=== PATIENT | female | born 2000 | race African-American/Black ===

== ENCOUNTER 2025-03-13 11:28 | Observation (INO) | payer MEDICAID, SELFPAY ==
[2025-03-13] VITALS (115 sets, daily range): BP systolic 81–118; BP diastolic 34–81; PULSE 91–136; RESP 18–24; TEMP 36.4–37.4; O2SAT 96–100; BMI 25.2
--- NOTE | ~2025-03-13 | US_ITS ---
EXAM EXAMINATION: US OB follow up DATE: 03/13/2025 13:27 CDT INDICATION: Absence of care. COMPARISON: None TECHNIQUE: Real-time transabdominal obstetric ultrasound. FINDINGS: 5 para 2 There is a single intrauterine gestation in vertex presentation. The placenta is anterior The cervix measures 4.00 cm in length on the submitted images. cardiac activity and movement is noted with a heart rate of 147 beats per minute. Amniotic fluid index measures 20.7 cm. The following biometric data were obtained: Biparietal diameter (BPD): 7.7 cm; head circumference (HC): 28.7 cm; abdominal circumference (AC): 26.6 cm; femur length (FL): 5.9 cm. These measurements are concordant. Estimated weight is 1640 g +/- 246 g, without correlation in size percentile provided. As single measurements, these parameters are each equal to the following estimated gestational ages: BPD: 30 weeks 5 days. HC: 31 weeks 3 days. AC: 30 weeks 5 days. FL: 30 weeks 6 days. estimated gestational age based solely on measurements from this exam is 31 weeks 0 days +/- 2 weeks 1 day. IMPRESSION: Single intrauterine gestation in vertex presentation with cardiac activity identified. Approximate gestational age is 31 weeks and 0 days with the estimated date of delivery 05/15/2025. Cervical length measures 4 cm. The placenta is anterior without placenta previa. Amniotic fluid index is within normal limits, as detailed above. Reviewed, dictated and finalized at location A. IMPRESSION: Single intrauterine gestation in vertex presentation with cardiac activit y identified. Approximate gestational age is 31 weeks and 0 days with the estimated date of d elivery 05/15/2025. Cervical length measures 4 cm. The placenta is anterior without placenta previa. Amniotic fluid index is within normal limits, as detailed above.
--- NOTE | 2025-03-13 12:00 | PC.NURSE ---
This patient, Idalmis Pierre, admitted to the OB room 116 for observation for contractions. Patient/family oriented to hospital policies and general routines including ID bracelet, bed and alarms, visiting hours, pain management, procedures, bathroom and other care routines, personal items, smoking policy, room service/diet, and visiting hours. Patient/Family are encouraged to report perceived risks to care and to ask questions if they do not understand what they are told or what they should do.
--- OUTSIDE RECORDS SUMMARY | 2025-03-13 12:02 | XMS_ITS | Referral Summary ---
Author Organization [facility] Address [facility] [place] [address] Care Team Providers Care Customer Service Dispatcher Name Role Phone No, Physician Primary Care Provider Allergies Active Allergy Reactions Criticality Noted Date Comments Latex Rash Medium 03/28/2024 Medications vit 64-[id number]-[id number]-d shirley 27mg iron- 800 mcg-250 mg capsule Take 1 tablet by mouth daily 30 capsule 4 Active promethazine (PHENERGAN) 25 mg tablet Take 1 tablet (25 mg total) by mouth every 6 (six) hours as needed for nausea 20 tablet 4 Active HYDROcodone-ismael taminophen (NORCO) 5-325 mg per tabletIndicatio ns:Pain Take 1 tablet by mouth every 6 (six) hours as needed for pain 6 tablet 4 Active metoclopramide (REGLAN) 10 mg tablet Take 1 tablet (10 mg total) by mouth every 8 (eight) hours as needed (nausea and vomiting) 12 tablet 4 Active acetaminophen (TYLENOL) 325 mg tablet Take 2 tablets (650 mg total) by mouth every 6 (six) hours as needed for pain, headaches or fever 30 tablet 4 Active Active Problems Problem Noted Date Diagnosed Date Second trimester 07/03/2022 Volume depletion 07/03/2022 Vaginal discharge 07/03/2022 Social History Tobacco Use Types Packs/Day Years Used Date Smoking Tobacco: Never Smokeless Tobacco: Never Alcohol Use Standard Drinks/Week Comments No 0 (1 standard drink = 0.6 oz pur e alcohol) Personal Safety Answer Date Recorded Have you ever been in or are you currently in a harmful physical or emotional relationship or is someone making you feel afraid or unsafe? Denies 10/15/2024 Comments Unknown Sex and Gender Information Value Date Recorded Sex Assigned at Not on file Legal Sex Female 10:40 PM LICENSED PRACTICAL NURSE Gender Identity Not on file Sexual Orientation Not on file Last Filed Vital Signs Vital Sign Reading Time Taken Comments Blood Pressure 144/78 10/16/2024 12:15 AM LICENSED PRACTICAL NURSE Pulse 97 10/16/2024 2:15 AM LICENSED PRACTICAL NURSE Temperature 36.9 C (98.4 F) 10/16/2024 2:19 AM LICENSED PRACTICAL NURSE Respiratory Rate 16 10/15/2024 10:01 PM LICENSED PRACTICAL NURSE Oxygen Saturation 100% 10/16/2024 2:15 AM LICENSED PRACTICAL NURSE Inhaled Oxygen Concentration - - Weight 65.8 kg (145 lb) 10/15/2024 10:01 PM LICENSED PRACTICAL NURSE Height 165.1 cm (5' 5) 10/15/2024 10:01 PM LICENSED PRACTICAL NURSE Body Mass Index 24.13 10/15/2024 10:01 PM LICENSED PRACTICAL NURSE Plan of Treatment Not on file Insurance [facility] Care Teams Customer Service Dispatcher Relationship Specialty Start Date End Date No, Physician PCP - General 07/03/22
--- OUTSIDE RECORDS SUMMARY | 2025-03-13 12:02 | XMS_ITS | Clinical Summary ---
Author Organization [facility] Address [facility] [place] [address] Care Team Providers Care Freight Sales Broker Name Role Phone No, Physician Primary Care Provider [phone] Allergies Active Allergy Reactions Criticality Noted Date Comments Latex Rash Medium 03/28/2024 Medications vit 86-gszm-[id number]-d shirley 27mg iron- 800 mcg-250 mg capsule [...] 07/03/2022 Volume depletion 07/03/2022 Vaginal discharge 07/03/2022 Medical History Medical History Date Comments Asthma Family History Medical History Relation Name Comments Breast cancer Maternal Grandmother Relation Name Status Comments Maternal Grandmother Social History Tobacco Use Types Packs/Day Years [...] on file Legal Sex Female 10:40 PM PROTOHISTORIAN Gender Identity Not on file Sexual Orientation Not on file Obstetrics History Para Term AB IAB SAB Ectopic Multiple Livin g Live Births 4 2 2 Date Outcome GA Total Labor Labor/2nd/3rd Weight Sex Type Anes PTL Vicki A1 A5 Name Clin SAB SAB Last Filed Vital Signs Vital Sign Reading Time Taken Comments Blood Pressure 144/78 10/16/2024 12:15 AM PROTOHISTORIAN Pulse 97 10/16/2024 2:15 AM PROTOHISTORIAN Temperature 36.9 C (98.4 F) 10/16/2024 2:19 AM PROTOHISTORIAN Respiratory Rate 16 10/15/2024 10:01 PM PROTOHISTORIAN Oxygen Saturation 100% 10/16/2024 2:15 AM PROTOHISTORIAN Inhaled Oxygen Concentration - - Weight 65.8 kg (145 lb) 10/15/2024 10:01 PM PROTOHISTORIAN Height 165.1 cm (5' 5) 10/15/2024 10:01 PM PROTOHISTORIAN Body Mass Index 24.13 10/15/2024 10:01 PM PROTOHISTORIAN Plan of Treatment Health Maintenance Due Date Last Done Comments Depression Screening 1998 Hepatitis C Screening 1998 Varicella Vaccines (1 of 2 - 13+ 2-dose series) 2011 HPV Vaccines (1 - 3-dose series) 2013 Hepatitis B Screening 2016 Regular Well Visit/Exam 18-64 2016 Pneumococcal vaccine <65 (1 of 2 - PCV) 2017 Cervical Cancer Screening 10/09/2021 10/09/2020 Influenza Vaccine (Season Ended) 2025 09/30/20, 10/09/2020 DTaP/Tdap/Td Vaccine (5 - Td or Tdap) 09/30/2032 09/30/2022, 01/30/2021, 05/27/2012, Additional history exists Insurance [employer] [place] Care Teams Freight Sales Broker Relationship Specialty Start Date End Date No, Physician PCP - General 07/03/22
[2025-03-13] MEDS: TERBUTALINE SULFATE 1 MG/ML VIAL 0.25 MG SUB-Q (12:15)
--- NOTE | 2025-03-13 12:18 | P.HP_ITS ---
H&P: HPI History of Present Illness Date/Time: 03/13/25 12:18 Chief Complaint: Contractions and pain Narrative: Is a 24-year-old 3 para 2 who came in the ambulance as walk-in with no care. She thinks she had ultrasound in her 1st 10 weeks in [place] which gave her a due date of 05/17 making her 29 weeks gestation. There was question of leaking fluid but not been seen here she is having irregular contractions. She does say she takes a vitamin but not regularly. She denies any other medical issues and has had at least 1 term delivery and 1 near term. Review of Systems Review of Systems: All systems reviewed & are unremarkable except as noted in HPI and below Meds Home Medications and Allergies Allergies Allergy/AdvReac Type Severity Reaction Status Date / Time Latex, Natural Rubber Allergy Rash Verified 03/13/25 12:12 Vital Signs Vital Signs - 24 hr 03/13/25 12:11 03/13/25 12:15 Pulse Rate 94 107 H Blood Pressure 95/53 L 110/63 Exam Const: General: cooperative, healthy appearing and comfortable Nutritional Appearance: average body habitus Orientation/consciousness: oriented to person, oriented to place and oriented to time HENMT: Head: normal to inspection Resp: Effort & Inspection: normal respiratory effort GI: Inspection: normal to inspection (Soft gravid uterus measures 29cm) : External Female Exam: normal external appearance and other (Remainder of exam deferred secondary to questionable previous bleeding) Assessment and Plan Assessment and plan (1) with history of pre-term labor: Code(s): O09.219 - Supervision of with history of pre-term labor, unspecified trimester Status: Acute (2) No care in current : Code(s): O09.30 - Supervision of with insufficient care, unspecified trimester Status: Acute Plan Will get labs. Will perform fibronectin and check for rupture of membranes. Ultrasound is ordered. In light of irregular contractions will give her a dose of terbutaline. Will check a urine drug screen get her in the system. You she is in labor consider transfer
[2025-03-13 13:23] LABS: Basophils Percent Auto 0.2 % (0.2-1.2); Eosinophils Percent Auto 0.2 % (0-4.4); Immature Granulocyte Absolute 0.09 K/mm3 (0.00-0.031); Immature Granulocyte Percent A 0.9 % (0-0.5); Immature Platelet Fraction Pct 1.6 % (0.9-11.2); Lymphocytes Absolute Auto 1.56 K/mm3 (0.9-3.2); Lymphocytes Percent Auto 15.1 % (18.3-44.2); Mean Corpuscular HGB Conc 24.5 g/dl (32-36); Mean Corpuscular Volume 61.2 fl (80-100); Mean Platelet Volume 9.4 fl (7.4-10.4); Monocytes Absolute Auto 0.7 K/mm3 (0.1-0.6); Monocytes Percent Auto 6.8 % (2.6-8.5); Neutrophils Percent Auto 76.8 % (45.5-73.1); Nucleated Red Blood Cells Perc 0.3 % (0.0-0.2); Platelet Count Result 253 k/mm3 (150-375); Red Blood Count 3.27 M/mm3 (4.2-5.4); Red Cell Distribution Width 21.5 % (11.5-14.5); White Blood Count 10.4 K/mm3 (4.5-10.0)
[2025-03-13 13:24] LABS: Fetal Fibronectin Negative
[2025-03-13 13:26] LABS: Hemoglobin 4.9 g/dL (12.0-15.0)
[2025-03-13 13:30] LABS: Syphilis IgG/IgM Antibody Negative (Negative)
[2025-03-13 13:34] LABS: Hepatitis B Surface Antigen Negative (Negative); Rubella IgG Antibody 31.2 IU/ML
[2025-03-13 13:38] LABS: Amphetamine Screen Urine Negative (Negative); Barbiturate Screen Urine Negative (Negative); Benzodiazepines Screen Urine Negative (Negative); Cannabinoid Screen Urine Negative (Negative); Cocaine Screen Urine Negative (Negative); Methadone Screen Urine Negative (Negative); Opiate Screen Urine Negative (Negative); Phencyclidine Screen Urine Negative (Negative)
[2025-03-13 13:44] LABS: HIV 1/2 Ab P24 Ag Result Negative (Negative)
[2025-03-13 13:59] LABS: Add Urine Microscopic? YES; Appearance Urine Clear (Clear); Bacteria Urine None Seen /hpf; Bilirubin Urine Negative (Negative); Blood Urine Negative (Negative); Color Urine Dark Yellow (Yellow); Glucose Urine UA Negative (Negative); Ketones Urine 2+ mg/dL (Negative); Leukocyte Esterase Ur 1+ LEU/UL (Negative); Need Manual Microscopic Reviewed; Nitrate Urine Negative (Negative); Non Pathogenic Casts 0-2; Protein Urine Trace mg/dL (Negative); RBC Urine 0-2 /hpf (0-2); Specific Grav Ur 1.015 (1.001-1.035); Squamous Epithelial Cell Urine None Seen /hpf (Few); WBC Urine 0-5 /hpf (0-3); pH Urine 6.5 (5.0-9.0)
[2025-03-13 14:10] LABS: Anisocytosis 2+; Hypochromasia 3+; Platelet Estimate Adequate (Adequate)
[2025-03-13 14:11] LABS: Acanthocytes 1+
[2025-03-13 14:12] LABS: Poikilocytosis 2+; Tear Drop Cells 1+
[2025-03-13 14:13] LABS: Schistocytes None Seen
[2025-03-13] MEDS: SODIUM CHLORIDE 0.9% IV 250 ML 30 ML IV CONT (14:40)
[2025-03-13] MEDS: TUBING, BLOOD PLUM PUMP TUBING 1 EACH XX ×4 (14:40→22:28)
[2025-03-13] MEDS: SODIUM CHLORIDE 0.9% IV 250 ML (19:11)
[2025-03-13] MEDS: ACETAMINOPHEN 500 MG TABLET 1000 MG PO (20:57)
[2025-03-14] VITALS (27 sets, daily range): BP systolic 99–115; BP diastolic 56–65; PULSE 77–105; RESP 20; TEMP 36.6–36.9; O2SAT 98–100
--- NOTE | 2025-03-14 01:08 | PC.NURSE ---
in unit 0109 report given. no new orders
[2025-03-14 05:36] LABS: Basophils Absolute Auto 0.1 K/mm3 (0.0-0.1); Basophils Percent Auto 0.5 % (0.2-1.2); Eosinophils Absolute Auto 0.1 K/mm3 (0-0.3); Eosinophils Percent Auto 0.7 % (0-4.4); Hematocrit 29.3 % (37.0-47.0); Hemoglobin 8.4 g/dL (12.0-15.0); Immature Granulocyte Absolute 0.06 K/mm3 (0.00-0.031); Immature Granulocyte Percent A 0.6 % (0-0.5); Immature Platelet Fraction Pct 1.5 % (0.9-11.2); Lymphocytes Percent Auto 18.4 % (18.3-44.2); Mean Corpuscular HGB Conc 28.7 g/dl (32-36); Mean Corpuscular Hemoglobin 19.5 pg (26-34); Mean Corpuscular Volume 68.1 fl (80-100); Mean Platelet Volume 9.1 fl (7.4-10.4); Monocytes Percent Auto 10.3 % (2.6-8.5); Neutrophils Absolute Auto 6.8 K/mm3 (1.3-6.7); Neutrophils Percent Auto 69.5 % (45.5-73.1); Nucleated Red Blood Cells Perc 0.5 % (0.0-0.2); Platelet Count Result 212 k/mm3 (150-375); Red Cell Distribution Width 25.7 % (11.5-14.5); White Blood Count 9.8 K/mm3 (4.5-10.0)
[2025-03-14 05:56] LABS: Anisocytosis 1+; Band Neutrophils Percent 0 % (0-6); Hypochromasia 1+; Ovalocytes 1+; Platelet Estimate Adequate (Adequate); Schistocytes None Seen
--- NOTE | 2025-03-14 07:05 | PC.NURSE ---
Pt sleeping. Respirations regular and even.
--- NOTE | 2025-03-14 07:24 | PM.OBPNVD ---
OB - PN: Subj Subjective Date/time seen: 03/14/25 07:24 Interval history: The patient reports feeling markedly better after 4units of blood. She is unsure if she has had testing for sickle cell or thalassemia before the past which have encouraged her to see her OB and that workup Patient comments: no complaints OB - PN: Obj Data Labs 03/14/25 05:12 Labs: Laboratory Results - last 24 hr 03/13/25 03/13/25 03/14/25 12:36 13:02 05:12 WBC 10.4 H 9.8 RBC 3.27 L 4.30 Hgb 4.9 L* 8.4 L D Hct 20.0 L* 29.3 L MCV 61.2 L 68.1 L D MCH 15.0 L 19.5 L D MCHC 24.5 L 28.7 L RDW 21.5 H 25.7 H Plt Count 253 212 MPV 9.4 9.1 Immature Gran % (Auto) 0.9 H 0.6 H Neut % (Auto) 76.8 H 69.5 Lymph % (Auto) 15.1 L 18.4 [place] % (Auto) 6.8 10.3 H Eos % (Auto) 0.2 0.7 Baso % (Auto) 0.2 0.5 Lymph # (Auto) 1.56 1.80 [place] # (Auto) 0.7 H 1.0 H Eos # (Auto) 0.0 0.1 Baso # (Auto) 0.0 0.1 Abs Immat Gran (auto) 0.09 H 0.06 H Absolute Neuts (auto) 8.0 H 6.8 H Absolute Nucleated RBC 0.030 H 0.050 H Band Neutrophils % Not Reportable 0 Nucleated RBC % 0.3 H 0.5 H Platelet Estimate Adequate Adequate % Immature Plt Fraction 1.6 1.5 Hypochromasia 3+ 1+ Poikilocytosis 2+ Anisocytosis 2+ 1+ Tear Drop Cells 1+ Ovalocytes 1+ Acanthocytes (Spur) 1+ Schistocytes None seen None seen Urine Color Dark yellow Urine Appearance Clear Urine pH 6.5 Ur Specific Spencer 1.015 Urine Protein Trace Urine Glucose (UA) Negative Urine Ketones 2+ H Ur Blood (Man) Negative Urine Nitrate Negative Urine Bilirubin Negative Urine Urobilinogen 4.0 H Add Ur Microanalysis Reviewed Leukocyte Esterase Rfl 1+ H Urine RBC 0-2 Urine WBC 0-5 Ur Squamous Epith Cells None seen Urine Bacteria None seen Urine Casts 0-2 Urine Opiates Screen Negative Urine Methadone Screen Negative Ur Barbiturates Screen Negative Ur Phencyclidine Scrn Negative Ur Amphetamine Screen Negative U Benzodiazepines Scrn Negative Urine Cocaine Screen Negative U Cannabinoids Screen Negative Syphilis IgG/IgM Ab Negative Hep Bs Antigen Negative HIV 1&2 Ab/P24 Ag 4thGn Negative Rubella IgG Antibody 31.2 Fibronectin Negative Blood Type B Positive Antibody Screen Negative Crossmatch See Detail Imaging Radiologist's impression: Impressions Obstetrics Ultrasound 03/13/25 13:26 IMPRESSION: Single intrauterine gestation in vertex presentation with cardiac activity identified. Approximate gestational age is 31 weeks and 0 days with the estimated date of delivery 05/15/2025. Cervical length measures 4 cm. The placenta is anterior without placenta previa. Amniotic fluid index is within normal limits, as detailed above. OB - PN A/P Assessment and Plan (1) with history of pre-term labor: Code(s): O09.219 - Supervision of with history of pre-term labor, unspecified trimester Status: Acute (2) Anemia: Code(s): D64.9 - Anemia, unspecified Status: Acute Plan Comments: Home on iron follow-up with her OB Time Spent With Patient Time: Total time spent is greater than 50% in coordination of care (as documented) at patient's floor/unit and/or counseling patient: Review of Systems Review of Systems: All systems reviewed & are unremarkable except as noted in HPI and below Exam Const: General: cooperative, healthy appearing and comfortable Nutritional Appearance: average body habitus Orientation/consciousness: oriented to person, oriented to place and oriented to time HENMT: Head: normal to inspection Resp: Effort & Inspection: normal respiratory effort GI: Inspection: normal to inspection (Soft gravid uterus measures 29cm) : External Female Exam: normal external appearance and other (Remainder of exam deferred secondary to questionable previous bleeding)
--- NOTE | 2025-03-14 07:25 | PC.NURSE ---
Dr. Miguelina Granger in to see pt. Pt states she feels less weak and tired when she gets up. informed pt that she needs to have follow up care. Offered his practice for pt or for her to go to who she delivered her other babies with. Discussed her sister's sickle cell disease. Pt is unaware if she has ever been worked up for sickle cell, but has never had a crisis. Pt did receive 1 unit of blood after 2nd delivery. Pt denies black or tarry stools. MD discussed with patient that she will need follow up evaluation for her severe anemia, but not appropriate to do a hemoglobin electrophoresis right after receiving 4 units of blood. MD discussed discharge plan with pt. Pt wants to order breakfast and go back to sleep until it gets here.
--- NOTE | 2025-03-14 07:27 | PM.DS ---
DS: Admitting Diagnosis Discharge Date Admitting Diagnosis Anemia/ labor/no care DS: Discharge Diagnosis Discharge Diagnosis (1) No care in current : Code(s): O09.30 - Supervision of with insufficient care, unspecified trimester Status: Acute (2) with history of pre-term labor: Code(s): O09.219 - Supervision of with history of pre-term labor, unspecified trimester Status: Acute (3) Anemia: Code(s): D64.9 - Anemia, unspecified Status: Acute DS: Summary Hospital Course Reason for hospitalization: The patient with 1 admitted as a walk-in 03/13/2025. She was having contractions is unsure of her dates she had no care her best estimate was for an EDC was 05/17/2025 based on an early outpatient ultrasound somewhere in [place]. She received 1 dose of terbutaline and was noted to be markedly anemic Hospital Course: Her contractions responded immediately to 1 dose of terbutaline. She was given 4units of packed red blood cells with a hemoglobin made 4 on the day that she left. She was encouraged to get a caregiver and to have a workup for thalassemias in sickle cell etc.. She was to be sent home on iron twice a day with Colace vitamin. labor precautions were given Time Spent with Patient Time attestation: Total time spent providing and/or coordinating discharge services: Exam Const: General: cooperative, healthy appearing and comfortable Nutritional Appearance: average body habitus Orientation/consciousness: oriented to person, oriented to place and oriented to time HENMT: Head: normal to inspection Resp: Effort & Inspection: normal respiratory effort GI: Inspection: normal to inspection (Soft gravid uterus measures 29cm) : External Female Exam: normal external appearance and other (Remainder of exam deferred secondary to questionable previous bleeding) DS: Data Data Completed and Pending Labs on day of discharge: Labs from last 24 hours 03/14/25 03/13/25 03/13/25 05:12 13:02 12:36 WBC 9.8 10.4 H RBC 4.30 3.27 L Hgb 8.4 L D 4.9 L* Hct 29.3 L 20.0 L* MCV 68.1 L D 61.2 L MCH 19.5 L D 15.0 L MCHC 28.7 L 24.5 L RDW 25.7 H 21.5 H Plt Count 212 253 MPV 9.1 9.4 Immature Gran % (Auto) 0.6 H 0.9 H Neut % (Auto) 69.5 76.8 H Lymph % (Auto) 18.4 15.1 L [place] % (Auto) 10.3 H 6.8 Eos % (Auto) 0.7 0.2 Baso % (Auto) 0.5 0.2 Lymph # (Auto) 1.80 1.56 [place] # (Auto) 1.0 H 0.7 H Eos # (Auto) 0.1 0.0 Baso # (Auto) 0.1 0.0 Abs Immat Gran (auto) 0.06 H 0.09 H Absolute Neuts (auto) 6.8 H 8.0 H Absolute Nucleated RBC 0.050 H 0.030 H Band Neutrophils % 0 Not Reportable Nucleated RBC % 0.5 H 0.3 H Platelet Estimate Adequate Adequate % Immature Plt Fraction 1.5 1.6 Hypochromasia 1+ 3+ Poikilocytosis 2+ Anisocytosis 1+ 2+ Tear Drop Cells 1+ Ovalocytes 1+ Acanthocytes (Spur) 1+ Schistocytes None seen None seen Urine Color Dark yellow Urine Appearance Clear Urine pH 6.5 Ur Specific [place] 1.015 Urine Protein Trace Urine Glucose (UA) Negative Urine Ketones 2+ H Ur Blood (Man) Negative Urine Nitrate Negative Urine Bilirubin Negative Urine Urobilinogen 4.0 H Add Ur Microanalysis Reviewed Leukocyte Esterase Rfl 1+ H Urine RBC 0-2 Urine WBC 0-5 Ur Squamous Epith Cells None seen Urine Bacteria None seen Urine Casts 0-2 Urine Opiates Screen Negative Urine Methadone Screen Negative Ur Barbiturates Screen Negative Ur Phencyclidine Scrn Negative Ur Amphetamine Screen Negative U Benzodiazepines Scrn Negative Urine Cocaine Screen Negative U Cannabinoids Screen Negative Syphilis IgG/IgM Ab Negative Hep Bs Antigen Negative HIV 1&2 Ab/P24 Ag 4thGn Negative Rubella IgG Antibody 31.2 Fibronectin Negative Blood Type B Positive Antibody Screen Negative Crossmatch See Detail Discharge Plan Discharge Attending physician on discharge: Loki Baird Discharging Clinician: Loki Baird Patient Disposition: Home Activity: may shower and pelvic rest Diet: heart healthy Wound Care Instructions: follow printed instructions Patient Instructions: Antibiotic Form Patient Language: Turkish Stand Alone Forms: General Discharge Information Follow-up/Referrals: Loki Baird MD [Physician] - Discharge Medications: Continued PNV [id number] [] 28 mg iron- 800 mcg tablet 1 tablet PO DAILY aspirin 325 mg capsule 650 mg PO Q4-6H PRN (Reason: pain) Date of admission: 03/13/25 11:28 Primary Care Provider: UNKNOWN,DOCTOR Admitting Provider: Loki Baird Attending physician on admission: Loki Baird Condition: Stable
[2025-03-14] MEDS: DOCUSATE SODIUM 100 MG CAPSULE PO (09:15)
[2025-03-14] MEDS: FERROUS SULFATE 325 MG TABLET DR PO (09:15)
== END 2025-03-14 09:22 | disposition home or self-care (01) ==
PROVIDERS: Admitting Provider Obstetrics & Gynecology; Visit Provider Obstetrics & Gynecology
DX: O60.03 Preterm labor without delivery, third trimester (principal); O99.013 Anemia complicating pregnancy, third trimester; D64.9 Anemia, unspecified; O09.33 Supervision of pregnancy with insufficient antenatal care, third trimester; Z3A.30 30 weeks gestation of pregnancy; Z11.4 Encounter for screening for human immunodeficiency virus [HIV]
CPT/HCPCS: 36415; 36430; 59025; 76816; 80307; 81001; 82731; 85025; 85055; 86593; 86703; 86762; 86850; 86900; 86901; 86923; 87086; 87340; 96372; A9270; G0378; G0379; G0432; J3105; J7050; P9016